=== PATIENT | male | born 1975 | race African-American/Black ===

== ENCOUNTER 2024-01-03 16:02 | Emergency (ER) | payer OTHER ==
[~2024-01-03] VITALS: Ht 170.2 cm; Wt 80.1 kg
[2024-01-03] MEDS ORDERED: NAPR-837 PO (16:59)
[2024-01-03 17:03] VITALS: BP 149/99; TEMP 97.3; O2SAT 100
== END 2024-01-03 17:13 | disposition home or self-care (01) ==
LOC: M ED 16:02
DX: S86.912A Strain of unspecified muscle(s) and tendon(s) at lower leg level, left leg, initial encounter (principal); Y92.84 Military training ground as the place of occurrence of the external cause; Y93.89 Activity, other specified; Y99.1 Military activity; Z79.1 Long term (current) use of non-steroidal anti-inflammatories (NSAID)